=== PATIENT | female | born 1980 | race Caucasian/White ===

== ENCOUNTER 2016-06-12 06:52 | Day surgery (SDC) | payer BC ==
[~2016-06-12 06:52] MED LIST: BUPIVACAINE-EPI 0.25%-1:200000 50 ML VIAL. ONE; FLUT1DIS3 IH; PROAIR HFA8.5 GM INH
[2016-06-12] MEDS ORDERED: fentaNYL PF VIAL 100 MCG/2 ML VIAL IV PRN (07:00)
[2016-06-12] MEDS ORDERED: ONDANSETRON PF 4 MG/2 ML VIAL. IV PRN (07:00)
[2016-06-12] MEDS ORDERED: LIDOCAINE 1% 1 ML SYRINGE. ID PRN (07:00)
[2016-06-12] MEDS ORDERED: PROCHLORPERAZINE 10 MG/2 ML VIAL. IV PRN (07:00)
[2016-06-12] MEDS ORDERED: IV RINGERS,LACTATED 1000ML 1,000 ML IV SCH (07:00)
[2016-06-12] MEDS ORDERED: HYDROmorphone 2 MG/ML VIAL IV PRN (07:00)
[2016-06-12] MEDS ORDERED: ONDANSETRON PF 4 MG/2 ML VIAL. ONE (07:02)
[2016-06-12] MEDS ORDERED: FAMOTIDINE 20 MG/2 ML VIAL ONE (07:02)
[2016-06-12] MEDS ORDERED: DEXAMETHASONE SOD PHOS 20 MG/5 ML VIAL. ONE (07:02)
[2016-06-12] MEDS ORDERED: PROPOFOL 20 ML IV ONE (07:02)
[2016-06-12] MEDS ORDERED: fentaNYL PF VIAL 100 MCG/2 ML VIAL ONE (07:02)
[2016-06-12] MEDS ORDERED: ROCURONIUM 50 MG/5 ML VIAL. ONE (07:04)
[2016-06-12] MEDS ORDERED: NEOSTIGMINE METHYLSULFATE 5 MG/5 ML SYRINGE. ONE (07:05)
[2016-06-12] MEDS ORDERED: GLYCOPYRROLATE 1 MG/5 ML VIAL. ONE (07:05)
[2016-06-12] MEDS ORDERED: MIDAZOLAM HCL/PF 2 MG/2 ML VIAL. ONE (07:09)
[2016-06-12] MEDS ORDERED: LIDOCAINE 2% 100 MG/5 ML SYRINGE. ONE (07:31)
[2016-06-12] MEDS ORDERED: SEVOFLURANE 31 TO 60 MINUTES. IH ONE (08:03)
--- NOTE | 2016-06-12 08:14 | DISCH ---
DISCHARGE INSTRUCTIONS Condition on Discharge Condition on Discharge: Stable Activity After Discharge Activity Instructions for Disc: Activity as tolerated Lifting Instructions after Dis: No heavy lifting Driving Instructions after Dis: Do not drive today Diet after Discharge Diet after Discharge: Regular Contacting the DRMelany after DC Call your doctor for: Concerns you may have Follow-Up Follow up with: Dr. Rios in 1 week. YEE RIOS Jr, MD June 12, 2016 08:14
--- NOTE | 2016-06-12 08:14 | PDOC ---
BRIEF OPERATIVE NOTE Pre-Op Diagnosis Sterilization Post-Op Diagnosis SAme Procedure Performed [facility] Surgeon Dr. Rios Anesthesia Type: General Blood Loss Less than 5 ml Specimens Obtained none Findings nml size uterus, nml fallopian tubes and ovaries diony. Complications none Additional Remarks ptYEE Tran Jr, MD June 12, 2016 08:14
[2016-06-12] MEDS: fentaNYL PF VIAL 100 MCG/2 ML VIAL IV PRN ×3 (08:25→09:17)
[2016-06-12] MEDS: MORPHINE SULFATE 2 MG/ML DISP.SYRIN. IV PRN ×2 (08:29→08:44)
[2016-06-12] MEDS ORDERED: OXYC-323 PO (08:31)
--- NOTE | 2016-06-12 08:34 | OP ---
DATE OF SURGERY: PREOPERATIVE DIAGNOSIS: Sterilization. POSTOPERATIVE DIAGNOSIS: Sterilization. PROCEDURE: Laparoscopic BTL with Filshie clips. SURGEON: Fabrice Rios MD ANESTHESIA: GETA. ESTIMATED BLOOD LOSS: Less than 5 mL. COMPLICATIONS: None. FINDINGS: Normal size uterus, normal fallopian tubes and ovaries bilaterally. SUMMARY: A 35-year-old 3, para 2, AB 1, desires permanent sterilization. The patient was counseled on risks, benefits and expectations as well as the failure rate and voiced clear understanding to proceed. DESCRIPTION OF PROCEDURE: The patient was taken to surgery suite and placed in dorsal lithotomy position. She was prepped with Betadine solution for vaginal prep and ChloraPrep for abdominal prep. After adequate anesthesia, a single-toothed tenaculum was placed on the anterior lip of the cervix. Uterine acorn manipulator was placed. Attention was now placed on abdomen. Small transverse skin incision made just below the umbilicus with the scalpel. The Veress needle was then placed through the infraumbilical incision site. The abdomen was allowed to insufflate up to 1-1/2 liters CO2 gas. The Veress needle was then removed, a 5-mm trocar was placed. Scope was positioned. Uterus appeared normal size. Fallopian tubes and ovaries appeared normal bilaterally. A second incision was made in the left lower quadrant with a scalpel in which an 8-mm port was placed. The Filshie clip applicator was then utilized to place across the left fallopian tube and its isthmus region totally occluding the fallopian tube. This process took place on the right adnexa as well. The trocars were then removed under direct visualization. The abdomen was allowed to deflate as much as possible along with mechanical manipulation. The 2 skin incisions were reapproximated using 4-0 Vicryl suture in a subcuticular manner. A 0.25% Marcaine with epinephrine was injected at each incision site. Uterine acorn manipulator and single-toothed tenaculum were removed. The patient tolerated the procedure well without any difficulty, taken to recovery room in stable condition. Sponge and needle count correct x 3. FABRICE RIOS MD DR: SHELIA/panda JOB#: [id number] / [id number]
[2016-06-12 08:37] LABS: NEG OBC UR NEG; POS OBC UR POS
[2016-06-12] MEDS ORDERED: HYDROcodone/APAP 5/325MG 1 TAB TABLET ONE (09:07)
[2016-06-12] MEDS ORDERED: HYDROcodone/APAP 5/325MG 1 TAB TABLET PO ONE (09:15)
[2016-06-12 09:30] VITALS: BP 122/62
== END 2016-06-12 09:55 | disposition home or self-care (01) ==
LOC: SURG 06:52
PROVIDERS: ATTEND Obstetrics & Gynecology
DX: Z30.2 Encounter for sterilization (principal); J45.909 Unspecified asthma, uncomplicated; K21.9 Gastro-esophageal reflux disease without esophagitis; Z87.39 Personal history of other diseases of the musculoskeletal system and connective tissue; Z72.89 Other problems related to lifestyle; Z72.0 Tobacco use
CPT/HCPCS: 58671; 81025; A4215; J0780; J1100; J2250; J2270; J2405; J2704; J2710; J3010; J3490; S0028

== ENCOUNTER → 2017-08-18 | Outpatient (CLI) | payer BC | END | disposition home or self-care (01) | LOC: US 10:37 | DX: N93.8 Other specified abnormal uterine and vaginal bleeding (principal); N83.291 Other ovarian cyst, right side | CPT/HCPCS: 76830; 76856 ==